=== PATIENT | male | born 1940 | race Caucasian/White ===

== ENCOUNTER → 2016-11-09 | Outpatient (CLI) | payer MEDICARE ==
--- NOTE | 2016-11-09 07:39 | CT ---
EXAMINATION TYPE: CT chest wo con DATE OF EXAM: 11/09/2016 7:27 AM COMPARISON: NONE HISTORY: Pulmonary fibrosis CT DLP: 147 mGycm Automated exposure control for dose reduction was used. FINDINGS: There is breathing motion artifact present on this study. There is very mild interlobular septal thic kening. There is mild, diffuse bronchiectasis. There is no significant axillary or hilar adenopathy. There is an 8 mm subcarinal lymph node. There is no pleural or pericardial fluid. There is an incompletely visualized 2.3 cm lesion involving the right kidney. There is diffuse hypertrophic spondylosis in the lower cervical spine dorsal spines. IMPRESSION: 1. MILD, DIFFUSE INTERSTITIAL CHANGE. 2. MILD, DIFFUSE BRONCHIECTASIS. 3. RIGHT RENAL LESION. A RENAL ULTRASOUND WOULD BE SUGGESTED. 4. EXTENSIVE DEGENERATIVE CHANGE WITHIN THE CERVICAL AND DORSAL SPINES.
== END | disposition home or self-care (01) ==
LOC: RADCTMAIN 07:03
PROVIDERS: ATTEND Internal Medicine
DX: J98.4 Other disorders of lung (principal); J47.9 Bronchiectasis, uncomplicated
CPT/HCPCS: 71250

== ENCOUNTER → 2016-12-07 | Outpatient (CLI) | payer MEDICARE ==
--- NOTE | 2016-12-07 10:58 | US ---
EXAMINATION TYPE: US kidneys/renal and bladder DATE OF EXAM: 12/07/2016 9:15 AM COMPARISON: CT in pacs CLINICAL HISTORY: Cysts of Kidney N28.1. Right kidney lesion seen on recent CT EXAM MEASUREMENTS: Right Kidney: 9.1 x 4.6 x 4.4 cm Left Kidney: 10.7 x 5.0 x 4.6 cm TECHNOLOGIST IMPRESSION: Right Kidney: 3.0 x 2.1 x 2.3cm hypoechoic area superior pole Left Kidney: wnl Bladder: not fully distended, appears wnl as seen Bilateral Jets seen: no There is no evidence for hydronephrosis at this point in time. No nephrolithiasis is seen. The uri nary bladder is anechoic. Bilateral ureteral jets are seen. Cystic focus within the right kidney shows a somewhat irregular wall. IMPRESSION: Findings do not represent a simple cyst. Consider short interval follow-up contrast enhanced CT scan of the abdomen versus follow-up ultrasound or MRI.
== END ==
LOC: RADUSWWP 08:40
PROVIDERS: ATTEND Internal Medicine Geriatric Medicine
DX: N28.1 Cyst of kidney, acquired (principal)
CPT/HCPCS: 76770

== ENCOUNTER 2018-05-11 10:57 | Emergency (ER) | payer MEDICARE ==
[2018-05-11 11:15] VITALS: RESP 18
[2018-05-11] MEDS ORDERED: DIPH,PERTUS(ACELL)TETVAC-LF 0.5 ML VIAL IM ONE (11:19)
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
--- NOTE | 2018-05-11 11:47 | XR ---
EXAMINATION TYPE: XR chest 1V portable DATE OF EXAM: 05/11/2018 HISTORY: Shortness of breath. COMPARISON: None. TECHNIQUE: Single view of the chest is submitted. FINDINGS: Demonstrated are scattered senescent parenchymal change. There is no evidence for focal infiltrate. The heart is stable. Hilar and mediastinal structures are within normal limits. Degenerative changes are seen of the dorsal spine. IMPRESSION: 1. Chronic changes without evidence for acute pulmonary disease.
--- NOTE | 2018-05-11 11:51 | XR ---
EXAMINATION TYPE: XR pelvis AP view DATE OF EXAM: 05/11/2018 CLINICAL HISTORY: TECHNIQUE: A single AP view of the pelvis is obtained. COMPARISON: None. FINDINGS: Vague lucency overlies the right femoral head. Nondisplaced fracture is difficult to exclud e. Consider CT of the right hip. The hip and sacroiliac joints appear symmetric and unremarkable. Th e overlying soft tissue appears unremarkable. IMPRESSION: Vague lucency overlies the right femoral head. Nondisplaced fracture is difficult to exc lude. Consider CT of the right hip.
[2018-05-11] MEDS ORDERED: LIDOCAINE 1% INJ 10MG/ML (20 ML MDV) SQ ONE (12:18)
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
[2018-05-11 13:42] VITALS: BP 159/81; PULSE 83; TEMP 97
== END 2018-05-11 13:35 | disposition home or self-care (01) ==
LOC: EC 10:57
DX: S01.01XA Laceration without foreign body of scalp, initial encounter (principal); G47.30 Sleep apnea, unspecified; J45.909 Unspecified asthma, uncomplicated; I10 Essential (primary) hypertension; Z23 Encounter for immunization; Z79.51 Long term (current) use of inhaled steroids; Z79.899 Other long term (current) drug therapy; Z85.46 Personal history of malignant neoplasm of prostate; V18.4XXA Pedal cycle driver injured in noncollision transport accident in traffic accident, initial encounter; Y93.55 Activity, bike riding
CPT/HCPCS: 99285; 12002; 90471; 72170; 71045; 72125; 70450; 90715; J2001

== ENCOUNTER 2018-12-20 15:08 | Inpatient (IN) | payer MEDICARE ==
[2018-12-20] MEDS ORDERED: methylPREDNISolone SOD SUCCI 125 MG/2 ML VIAL IV STA (15:41)
[2018-12-20] MEDS ORDERED: IPRATROPIUM-ALBUTEROL 3 ML NEB INHALATION STA (15:41)
[2018-12-20 16:02] LABS: Basophils # (A) 0.1 k/uL (0-0.2); Basophils % (A) 0 %; Eosinophils # (A) 0.8 k/uL (0-0.7); Eosinophils % (A) 6 %; HCT 46.1 % (39.0-53.0); HGB 14.8 gm/dL (13.0-17.5); Lymphocytes % (A) 8 %; MCH 28.2 pg (25.0-35.0); MCHC 32.2 g/dL (31.0-37.0); MCV 87.6 fL (80.0-100.0); Mean Platelet Volume 7.8; Monocytes # (A) 0.8 k/uL (0-1.0); Monocytes % (A) 6 %; Neutrophils # (A) 9.2 k/uL (1.3-7.7); Neutrophils % (A) 77 %; Platelet Count 228 k/uL (150-450); RBC 5.26 m/uL (4.30-5.90); RDW 14.2 % (11.5-15.5); WBC 11.9 k/uL (3.8-10.6)
[2018-12-20 16:11] LABS: Albumin 4.1 g/dL (3.5-5.0); Calcium 9.5 mg/dL (8.4-10.2); INR 0.9 (<1.2); Magnesium 2.2 mg/dL (1.6-2.3); Partial Thromboplastin Time 25.2 sec (22.0-30.0); Potassium 3.9 mmol/L (3.5-5.1); Prothrombin Time 10.1 sec (9.0-12.0); Total Bilirubin 0.7 mg/dL (0.2-1.3); Total Protein 7.1 g/dL (6.3-8.2)
--- NOTE | 2018-12-20 17:20 | ED ---
SOB HPI - General Chief Complaint: Shortness of Breath Stated Complaint: pneumonia Time Seen by Provider: 12/20/18 15:19 Source: family, RN/MD, RN notes reviewed Mode of arrival: wheelchair Limitations: altered mental status - History of Present Illness Initial Comments: This is a 77-year-old male history of dementia who was sent in from his doctor's office for evaluation shortness of breath and aspiration. Patient did have an episode of aspiration in October of this year per family he is not really recovered is believed he is aspirated again the meantime. He has persistent shortness of breath and evaluation diminished breath sounds with evidence of wheezing. Patient himself is a poor historian does demonstrate Parkinson's and Alzheimer's disease. No further information available at this time. MD Complaint: shortness of breath, cough - Related Data Home Medications Medication Instructions Recorded Confirmed Budesonide-Formot 160-4.5 Mcg 2 puff INHALATION RT-BID 06/28/16 12/20/18 [Symbicort 160-4.5 Mcg Inhaler] amLODIPine BESYLATE [Amlodipine 10 mg PO DAILY 06/28/16 12/20/18 Besylate] Albuterol Sulfate [Proair Hfa] 2 puff INHALATION RT-Q4H PRN 05/11/18 12/20/18 Cholecalciferol [Vitamin D3] 5,000 unit PO DAILY 05/11/18 12/20/18 Sertraline HCl [Zoloft] 50 mg PO DAILY 05/11/18 12/20/18 Albuterol Nebulized [Ventolin 2.5 mg INHALATION RT-QID PRN 12/20/18 12/20/18 Nebulized] Tolterodine Tartrate [Detrol LA] 2 mg PO DAILY 12/20/18 12/20/18 Allergies Allergy/AdvReac Type Severity Reaction Status Date / Time codeine AdvReac LETHARGIC Verified 12/20/18 15:51 Review of Systems ROS Statement: Those systems with pertinent positive or pertinent negative responses have been documented in the HPI. ROS Other: All systems not noted in ROS Statement are negative. Limitations: ROS unobtainable due to patients medical condition Past Medical History Past Medical History: Asthma, Cancer, Dementia, Hypertension, Liver Disease, Sleep Apnea/CPAP/BIPAP Additional Past Medical History / Comment(s): HX OF NASAL POLYPS, HX OF PROSTATE CA, METAL CLIPS IN [place] EYES, CANNOT HAVE MRI, DOES NOT USE CPAP History of Any Multi-Drug Resistant Organisms: None Reported Past Surgical History: Prostate Surgery Additional Past Surgical History / Comment(s): TAWNYA EYES SX FOR DETACHED RETINA WITH METAL CLIPS Past Anesthesia/Blood Transfusion Reactions: Previous Problems w/ Anesthesia Additional Past Anesthesia/Blood Transfusion Reaction / Comment(s): SPOUSE STATES "HAS TROUBLE WAKING UP" Past Psychological History: No Psychological Hx Reported Smoking Status: Never smoker Past Alcohol Use History: None Reported Past Drug Use History: None Reported - Past Family History Sister(s) Family Medical History: Cancer General Exam - General Exam Comments Initial Comments: This is a well-developed sec appearing male who is awake alert but confused. Limitations: altered mental status General appearance: alert, in no apparent distress Head exam: Present: atraumatic, normocephalic, normal inspection Eye exam: Present: normal appearance, PERRL, EOMI. Absent: scleral icterus, conjunctival injection, periorbital swelling ENT exam: Present: mucous membranes dry Neck exam: Present: normal inspection. Absent: tenderness, meningismus, lymphadenopathy Respiratory exam: Present: wheezes, rhonchi, decreased breath sounds Cardiovascular Exam: Present: normal rhythm, tachycardia GI/Abdominal exam: Present: soft, normal bowel sounds. Absent: distended, tenderness, guarding, rebound, rigid Extremities exam: Present: normal inspection, full ROM, normal capillary refill. Absent: tenderness, pedal edema, joint swelling, calf tenderness Back exam: Present: normal inspection Neurological exam: Present: alert, altered, CN II-XII intact Psychiatric exam: Present: normal affect, normal mood Skin exam: Present: warm, dry, intact, normal color. Absent: rash Course Vital Signs 12/20/18 12/20/18 12/20/18 15:14 15:54 16:00 Temperature 98.3 F Pulse Rate 105 H 102 H 96 Respiratory 20 Rate Blood Pressure 151/92 O2 Sat by Pulse 96 100 Oximetry 12/20/18 16:30 Temperature Pulse Rate 94 Respiratory 19 Rate Blood Pressure 150/92 O2 Sat by Pulse 98 Oximetry Medical Decision Making - Medical Decision Making Did discuss findings with the patient family and Dr. Bridges as well as previously with Dr. Barboza patient will be admitted with pneumonia likely aspiration pneumonia also bronchospasm. Patient will be seen in consultation by pulmonary medicine. - Lab Data Result diagrams: 12/20/18 15:52 12/20/18 15:52 Lab Results 12/20/18 12/20/18 12/20/18 Range/Units 15:52 15:52 15:52 WBC 11.9 H (3.8-10.6) k/uL RBC 5.26 (4.30-5.90) m/uL Hgb 14.8 (13.0-17.5) gm/dL Hct 46.1 (39.0-53.0) % MCV 87.6 (80.0-100.0) fL MCH 28.2 (25.0-35.0) pg MCHC 32.2 (31.0-37.0) g/dL RDW 14.2 (11.5-15.5) % Plt Count 228 (150-450) k/uL Neutrophils % 77 % Lymphocytes % 8 % Monocytes % 6 % Eosinophils % 6 % Basophils % 0 % Neutrophils # 9.2 H (1.3-7.7) k/uL Lymphocytes # 1.0 (1.0-4.8) k/uL Monocytes # 0.8 (0-1.0) k/uL Eosinophils # 0.8 H (0-0.7) k/uL Basophils # 0.1 (0-0.2) k/uL PT (9.0-12.0) sec INR (<1.2) APTT (22.0-30.0) sec Sodium 143 (137-145) mmol/L Potassium 3.9 (3.5-5.1) mmol/L Chloride 106 (98-107) mmol/L Carbon Dioxide 28 (22-30) mmol/L Anion Gap 9 mmol/L BUN 33 H (9-20) mg/dL Creatinine 1.26 H (0.66-1.25) mg/dL Est GFR (CKD-EPI)AfAm 62 (>60 ml/min/1.73 sqM) Est GFR (CKD-EPI)NonAf 54 (>60 ml/min/1.73 sqM) Glucose 109 H (74-99) mg/dL Calcium 9.5 (8.4-10.2) mg/dL Magnesium 2.2 (1.6-2.3) mg/dL Total Bilirubin 0.7 (0.2-1.3) mg/dL AST 33 (17-59) U/L ALT 29 (21-72) U/L Alkaline Phosphatase 96 (38-126) U/L Creatine Kinase 190 H (55-170) U/L Troponin I (0.000-0.034) ng/mL NT-Pro-B Natriuret Pep 827 pg/mL Total Protein 7.1 (6.3-8.2) g/dL Albumin 4.1 (3.5-5.0) g/dL 12/20/18 12/20/18 Range/Units 15:52 15:52 WBC (3.8-10.6) k/uL RBC (4.30-5.90) m/uL Hgb (13.0-17.5) gm/dL Hct (39.0-53.0) % MCV (80.0-100.0) fL MCH (25.0-35.0) pg MCHC (31.0-37.0) g/dL RDW (11.5-15.5) % Plt Count (150-450) k/uL Neutrophils % % Lymphocytes % % Monocytes % % Eosinophils % % Basophils % % Neutrophils # (1.3-7.7) k/uL Lymphocytes # (1.0-4.8) k/uL Monocytes # (0-1.0) k/uL Eosinophils # (0-0.7) k/uL Basophils # (0-0.2) k/uL PT 10.1 (9.0-12.0) sec INR 0.9 (<1.2) APTT 25.2 (22.0-30.0) sec Sodium (137-145) mmol/L Potassium (3.5-5.1) mmol/L Chloride (98-107) mmol/L Carbon Dioxide (22-30) mmol/L Anion Gap mmol/L BUN (9-20) mg/dL Creatinine (0.66-1.25) mg/dL Est GFR (CKD-EPI)AfAm (>60 ml/min/1.73 sqM) Est GFR (CKD-EPI)NonAf (>60 ml/min/1.73 sqM) Glucose (74-99) mg/dL Calcium (8.4-10.2) mg/dL Magnesium (1.6-2.3) mg/dL Total Bilirubin (0.2-1.3) mg/dL AST (17-59) U/L ALT (21-72) U/L Alkaline Phosphatase (38-126) U/L Creatine Kinase (55-170) U/L Troponin I 0.022 (0.000-0.034) ng/mL NT-Pro-B Natriuret Pep pg/mL Total Protein (6.3-8.2) g/dL Albumin (3.5-5.0) g/dL - EKG Data -: EKG Interpreted by Me (Sinus rhythm rate 98. Interval 158 QRS duration 104 QT since QTC 380/490 5) - Radiology Data Radiology results: report reviewed (I did review the imaging and report evidence of bronchopulmonary pneumonia on the lateral x-ray the mediastinal area.), image reviewed Disposition Clinical Impression: Aspiration pneumonia, Acute exacerbation of chronic obstructive airways disease, Acute bronchospasm Disposition: ADMITTED IP TO THIS HOSP Condition: Fair Referrals: Dilshad Barboza MD [Primary Care Provider] - 1-2 days
--- NOTE | 2018-12-20 17:32 | XR ---
EXAMINATION: XR chest 2V DATE AND TIME: 12/20/2018 4:51 PM CLINICAL INDICATION: PHH; difficulty breathing TECHNIQUE: Departmental protocol COMPARISON: 05/11/2018 FINDINGS: EKG leads noted. The lungs again demonstrate a coarse interstitial pattern consistent with chronic interstitial lung c hange. The lateral view shows 2 3 cm zones of consolidative opacity, superimposed over the middle med iastinum but suspicious for early developing bronchopneumonia. The pleural spaces are negative. The cardiac silhouette is not enlarged. The remainder of the mediastinal silhouette is unremarkable. The skeletal structures and soft tissues are negative for acute findings. IMPRESSION: Findings suspicious for early developing bronchopneumonia on the lateral radiograph; 6 week follow-up PA and lateral chest radiographs are advised in order to prove resolution.
[2018-12-20] MEDS ORDERED: PIPERACILLIN-TAZOBACTAM 3.375 GM in SODIUM CHLORIDE 0.9% 100 ML IVPB STA (17:50)
[2018-12-20] MEDS ORDERED: PNEUMONIA PROTOCOL UTILIZED 1 EACH MISC PO PRN (17:56)
[2018-12-20] MEDS ORDERED: LEVOFLOXACIN 750MG-D5W PMX 750 MG in DEXTROSE/WATER 1 150ML.BAG IVPB STA (17:56)
[2018-12-20] MEDS ORDERED: methylPREDNISolone SOD SUCCI 125 MG/2 ML VIAL IV SCH (18:00)
[2018-12-20] MEDS: SODIUM CHLORIDE 0.9% 1,000 ML IV SCH (18:16)
[2018-12-20] MEDS: IPRATROPIUM-ALBUTEROL 3 ML NEB INHALATION SCH ×2 (19:23→23:15)
[2018-12-20] MEDS: SYMBICORT 160-4.5 MCG INHALER INHALATION SCH (19:24)
[2018-12-20] MEDS ORDERED: ALPRAZolam 0.25 MG TAB PO STA (22:29)
[2018-12-21] MEDS: HEPARIN SODIUM,PORCINE 5,000 UNIT/ML 1 ML VIAL SQ SCH ×4 (00:48→23:28)
[2018-12-21] MEDS: methylPREDNISolone SOD SUCCI 125 MG/2 ML VIAL IV SCH ×5 (00:51→23:28)
[2018-12-21] MEDS: PIPERACILLIN-TAZOBACTAM 3.375 GM in SODIUM CHLORIDE 0.9% 100 ML IVPB SCH ×4 (00:51→23:29)
[2018-12-21] MEDS ORDERED: LEVOFLOXACIN 750MG-D5W PMX 750 MG in DEXTROSE/WATER 1 150ML.BAG IVPB ONE (01:00)
[2018-12-21] MEDS: IPRATROPIUM-ALBUTEROL 3 ML NEB INHALATION SCH ×5 (03:41→20:00)
[2018-12-21] MEDS: SODIUM CHLORIDE 0.9% 1,000 ML IV SCH ×3 (05:40→23:29)
[2018-12-21] MEDS: SYMBICORT 160-4.5 MCG INHALER INHALATION SCH ×2 (07:05→20:03)
[2018-12-21] MEDS: OXYBUTYNIN XL 5 MG TAB.ER.24 PO SCH (09:14)
[2018-12-21] MEDS: amLODIPine 10 MG TAB PO SCH (09:14)
[2018-12-21] MEDS: PANTOPRAZOLE 40 MG TABLET PO SCH (09:14)
[2018-12-21] MEDS: SERTRALINE 50 MG TAB PO SCH (09:14)
[2018-12-21] MEDS: CHOLECALCIFEROL 1,000 UNIT TAB PO SCH (09:15)
--- NOTE | 2018-12-21 11:40 | P.CNPUL ---
History of Present Illness Consult date: 12/21/18 Requesting physician: Kendall Salvador Reason for consult: dyspnea, cough Chief complaint: Shortness of breath, wheezing History of present illness: This is a 78-year-old white male patient with history of advanced dementia, history of chronic bronchial asthma, hypertension, sleep apnea does not use CPAP, never smoker, prostate cancer is admitted to the hospital on 12/20/2018 with complaint some shortness of breath, suspected episode of aspiration, some cough, wheezing. Apparently patient has been having recurrent episodes of aspiration for last 6 months. His is at the bedside, and provided much of the history, patient has been treated in outpatient setting with antibiotics, steroids and breathing treatments. He has been having trouble swallowing with both liquids and solids. His states he eats very fast despite the instructions to slow down. Chest x-ray was completed, and showed coarse interstitial pattern, suspicious early developing bronchopneumonia in the right lower lobe. Patient has been started on empiric antibiotics, currently on Levaquin and Zosyn, Symbicort, nebulized bronchodilators, and IV Solu-Medrol. Review of Systems All systems: negative Constitutional: Denies chills, Denies fever Eyes: denies blurred vision, denies pain Ears, nose, mouth and throat: Denies headache, Denies sore throat Cardiovascular: Denies chest pain, Denies shortness of breath Respiratory: Reports congestion, Reports dyspnea, Reports respiratory infections, Reports wheezing, Denies cough Gastrointestinal: Denies abdominal pain, Denies diarrhea, Denies nausea, Denies vomiting Musculoskeletal: Denies myalgias Integumentary: Denies pruritus, Denies rash Neurological: Denies numbness, Denies weakness Psychiatric: Denies anxiety, Denies depression Endocrine: Denies fatigue, Denies weight change Past Medical History Past Medical History: Asthma, Cancer, Dementia, Hypertension, Liver Disease, Sleep Apnea/CPAP/BIPAP Additional Past Medical History / Comment(s): HX OF NASAL POLYPS, HX OF PROSTATE CA, METAL CLIPS IN [place]NYA EYES, CANNOT HAVE MRI, DOES NOT USE CPAP History of Any Multi-Drug Resistant Organisms: None Reported Past Surgical History: Prostate Surgery Additional Past Surgical History / Comment(s): TAWNYA EYES SX FOR DETACHED RETINA WITH METAL CLIPS Past Anesthesia/Blood Transfusion Reactions: Previous Problems w/ Anesthesia Additional Past Anesthesia/Blood Transfusion Reaction / Comment(s): SPOUSE STATES "HAS TROUBLE WAKING UP" Past Psychological History: No Psychological Hx Reported Smoking Status: Never smoker Past Alcohol Use History: None Reported Past Drug Use History: None Reported - Past Family History Sister(s) Family Medical History: Cancer Medications and Allergies Home Medications Medication Instructions Recorded Confirmed Type Budesonide-Formot 160-4.5 Mcg 2 puff INHALATION RT-BID 06/28/16 12/20/18 History [Symbicort 160-4.5 Mcg Inhaler] amLODIPine BESYLATE [Amlodipine 10 mg PO DAILY 06/28/16 12/20/18 History Besylate] Albuterol Sulfate [Proair Hfa] 2 puff INHALATION RT-Q4H PRN 05/11/18 12/20/18 History Cholecalciferol [Vitamin D3] 5,000 unit PO DAILY 05/11/18 12/20/18 History Sertraline HCl [Zoloft] 50 mg PO DAILY 05/11/18 12/20/18 History Albuterol Nebulized [Ventolin 2.5 mg INHALATION RT-QID PRN 12/20/18 12/20/18 History Nebulized] Tolterodine Tartrate [Detrol LA] 2 mg PO DAILY 12/20/18 12/20/18 History Allergies Allergy/AdvReac Type Severity Reaction Status Date / Time codeine AdvReac LETHARGIC Verified 12/20/18 15:51 Physical Exam Vitals: Vital Signs Temp Pulse Pulse Resp BP BP Pulse Ox 12/21/18 11:25 80 12/21/18 11:13 84 12/21/18 07:13 90 12/21/18 07:06 88 12/21/18 07:00 97.9 F 102 H 18 145/89 95 12/21/18 03:52 90 12/21/18 03:41 90 12/20/18 23:26 92 12/20/18 23:16 92 12/20/18 21:18 98.7 F 107 H 18 152/89 94 L 12/20/18 19:35 97 12/20/18 19:24 96 99 12/20/18 18:30 158/98 12/20/18 18:00 101 H 158/110 12/20/18 17:30 145/87 12/20/18 17:00 101 H 143/97 98 12/20/18 16:30 94 19 150/92 98 12/20/18 16:00 96 100 12/20/18 15:54 102 H 12/20/18 15:14 98.3 F 105 H 20 151/92 96 Intake and Output 12/20/18 12/21/18 12/21/18 22:59 06:59 14:59 Intake Total 600 Balance 600 Intake: Other 600 Other: # Voids 1 Weight 72.575 kg GENERAL EXAM: Alert, pleasantly confused, 78-year-old white female, comfortable in no apparent distress. HEAD: Normocephalic/atraumatic. EYES: Normal reaction of pupils, equal size. Conjunctiva pink, sclera white. NOSE: Clear with pink turbinates. THROAT: No erythema or exudates. NECK: No masses, no JVD, no thyroid enlargement, no adenopathy. CHEST: No chest wall deformity. Symmetrical expansion. LUNGS: Equal air entry with diffuse rhonchi and wheezes CVS: Regular rate and rhythm, normal S1 and S2, no gallops, no murmurs, no rubs ABDOMEN: Soft, nontender. No hepatosplenomegaly, normal bowel sounds, no guarding or rigidity. EXTREMITIES: No clubbing, no edema, no cyanosis, 2+ pulses and upper and lower extremities. MUSCULOSKELETAL: Muscle strength and tone normal. SPINE: No scoliosis or deformity SKIN: No rashes CENTRAL NERVOUS SYSTEM: Alert and oriented -2. No focal deficits, tone is normal in all 4 extremities. PSYCHIATRIC: Alert and oriented -2. Appropriate affect. Intact judgment and insight. Results - Laboratory Findings CBC and BMP: 12/20/18 15:52 12/20/18 15:52 PT/INR, D-dimer PT 10.1 sec (9.0-12.0) 12/20/18 15:52 INR 0.9 (<1.2) 12/20/18 15:52 Abnormal lab findings: Abnormal Labs 12/20/18 12/20/18 15:52 15:52 WBC 11.9 H Neutrophils # 9.2 H Eosinophils # 0.8 H BUN 33 H Creatinine 1.26 H Glucose 109 H Creatine Kinase 190 H - Diagnostic Findings Chest x-ray: report reviewed, image reviewed Assessment and Plan Plan: Assessment: #1. Acute aspiration pneumonia, and the chest x-ray showed interstitial pat tern, and right lower lobe developing infiltrate suspicious for pneumonia #2. Chronic aspiration related to dementia #3. Recurrent aspiration pneumonias, difficult swallowing with both liquids and solids for last 6 months #4. History of chronic bronchial asthma with acute exacerbation related to aspiration #5. Hypertension #6. Sleep apnea not on CPAP therapy #7. Prostate cancer with resection #8. Lifetime nonsmoker #9. Dementia Plan: Continue current antibiotic coverage, IV steroids, nebulized bronchodilators. Recommend status nothing by mouth, patient is having recurrent aspiration likely related to underlying dementia. Will obtain speech therapy evaluation, modified barium swallow. Recommend conservative medical treatment, patient's CODE STATUS is DO NOT RESUSCITATE. Continue with supportive care. All medications, chest x-rays and labs have been reviewed, pro-calcitonin level was low, suggesting absence of infection, and this could be gastric acid aspiration, or Radha syndrome. He is on appropriate therapies, will follow on as-needed basis. Thank you for this consultation I performed a history & physical examination of the patient and discussed their management with my nurse practitioner, Rufina Mortensen. I reviewed the nurse practitioner's note and agree with the documented findings and plan of care. Lung sounds are positive for diffuse wheezes throughout the lung parker. The findings and the impression was discussed with the patient. I attest to the documentation by the nurse practitioner. Time with Patient: Greater than 30
--- NOTE | 2018-12-21 13:24 | P.HPIM ---
History of Present Illness H&P Date: 12/20/18 Chief Complaint: Aspiration pneumonia with asthma exacerbation. This is a 69-year-old male one of Dr. Barboza with a previous medical history significant for hypertension and hypertensive cardio vascular disease with left ventricular hypertrophy, history of advanced dementia, as well as Parkinson disease, history of overactive bladder, prostate cancer status post r adical prostatectomy, history of chronic and recurrent aspiration of the last 6 months with deterioration of his mental status and physical status, he was brought into the office due to increased shortness with increased confusion, and he was referred to the ER at [facility] for evaluation of aspiration pneumonia, he had a chest x-ray that showed left lower lobe infiltrate suggestive of aspiration pneumonia, pro-calcitonin level is low indicating Radha pneumonia or acid reflux pneumonia. Patient was started on IV antibiotic as well as IV Solu-Medrol he was placed on nebulized treatment as well he would be seen in consultation by pulmonary medicine for further evaluation. Patient's did not want him to go for any invasive procedure or any diagnostic testing including swallow evaluation at this time, we will continue to monitor the patient very closely and hopefully transfer the patient to monitor for palliative care. Review of Systems Constitutional: Reports fatigue, Reports malaise, Reports weakness, Reports weight loss, Denies anorexia, Denies chronic headaches Eyes: bilateral blurred vision, bilateral decreased vision, denies bulging eye Ears: bilateral: decreased hearing Ears, nose, mouth and throat: Reports dysphagia, Denies neck lump, Denies swelling in throat, Denies sore throat Cardiovascular: Reports decreased exercise tolerance, Reports dyspnea on exertion, Reports lightheadedness, Reports shortness of breath, Denies chest pain, Denies rapid heart beat, Denies syncope Respiratory: Reports congestion, Reports cough, Reports cough with sputum, Reports dyspnea, Reports sleep apnea, Reports snoring, Reports wheezing, Denies home oxygen Gastrointestinal: Denies abdominal pain, Denies bloating, Denies BRBPR, Denies heartburn, Denies loss of appetite, Denies melena, Denies nausea, Denies vomiting Genitourinary: Denies dysuria Musculoskeletal: Reports as per HPI, Reports frequent falls, Reports gait dysfunction, Reports morning stiffness Musculoskeletal: absent: ankle pain, ankle stiffness, ankle swelling, elbow pain, elbow stiffness, elbow swelling, foot pain, foot stiffness, foot swelling, hand pain, hand stiffness, hand swelling, hip pain, hip stiffness, hip swelling, knee pain, knee stiffness, knee swelling, shoulder pain, shoulder stiffness, shoulder swelling, wrist pain, wrist stiffness, wrist swelling Integumentary: Denies pruritus, Denies rash Neurological: Reports balance difficulties, Reports change in speech, Reports confusion, Reports gait dysfunction, Reports lack of coordination, Reports memory loss, Reports spasticity, Reports tremors, Reports vertigo, Reports weakness, Reports visual changes Psychiatric: Reports anxiety, Reports confusion, Reports insomnia, Reports irritability, Denies depression, Denies sadness/tearfulness, Denies sleep disturbances, Denies suicidal ideation Endocrine: Denies fatigue, Denies weight change Past Medical History Past Medical History: Asthma, Cancer, Dementia, Hypertension, Liver Disease, Sleep Apnea/CPAP/BIPAP Additional Past Medical History / Comment(s): HX OF NASAL POLYPS, HX OF PROSTATE CA, METAL CLIPS IN TAWNYA EYES, CANNOT HAVE MRI, DOES NOT USE CPAP History of Any Multi-Drug Resistant Organisms: None Reported Past Surgical History: Prostate Surgery Additional Past Surgical History / Comment(s): TAWNYA EYES SX FOR DETACHED RETINA WITH METAL CLIPS, sinus surgery, radical prostatectomy 2003, tonsillectomy and adenoidectomy, bilateral retinal detachment 1992 and 1995. Past Anesthesia/Blood Transfusion Reactions: Previous Problems w/ Anesthesia Additional Past Anesthesia/Blood Transfusion Reaction / Comment(s): SPOUSE STATES "HAS TROUBLE WAKING UP" Past Psychological History: No Psychological Hx Reported Smoking Status: Never smoker Past Alcohol Use History: None Reported Past Drug Use History: None Reported - Past Family History Sister(s) Family Medical History: Cancer (Patient had one sister who at age of 65 from cancer of unknown origin.) Brother(s) Family Medical History: No Reported History (Patient had 2 brothers one of them was stillborn) Father Family Medical History: Renal Disease (Father at age of 83 from renal disease.) Mother Family Medical History: Congestive Heart Failure (CHF), COPD (Mother at age of 74 from congestive heart failure and COPD.) Medications and Allergies Home Medications Medication Instructions Recorded Confirmed Type Budesonide-Formot 160-4.5 Mcg 2 puff INHALATION RT-BID 06/28/16 12/20/18 History [Symbicort 160-4.5 Mcg Inhaler] amLODIPine BESYLATE [Amlodipine 10 mg PO DAILY 06/28/16 12/20/18 History Besylate] Albuterol Sulfate [Proair Hfa] 2 puff INHALATION RT-Q4H PRN 05/11/18 12/20/18 History Cholecalciferol [Vitamin D3] 5,000 unit PO DAILY 05/11/18 12/20/18 History Sertraline HCl [Zoloft] 50 mg PO DAILY 05/11/18 12/20/18 History Albuterol Nebulized [Ventolin 2.5 mg INHALATION RT-QID PRN 12/20/18 12/20/18 History Nebulized] Tolterodine Tartrate [Detrol LA] 2 mg PO DAILY 12/20/18 12/20/18 History Allergies Allergy/AdvReac Type Severity Reaction Status Date / Time codeine AdvReac LETHARGIC Verified 12/20/18 15:51 Physical Exam Vitals: Vital Signs Temp Pulse Resp BP Pulse Ox 12/20/18 18:30 158/98 12/20/18 18:00 101 H 158/110 12/20/18 17:30 145/87 12/20/18 17:00 101 H 143/97 98 12/20/18 16:30 94 19 150/92 98 12/20/18 16:00 96 100 12/20/18 15:54 102 H 12/20/18 15:14 98.3 F 105 H 20 151/92 96 Intake and Output 12/20/18 12/20/18 12/20/18 06:59 14:59 22:59 Other: Weight 72.575 kg - Constitutional General appearance: disheveled, mild distress, thin - Neck Neck: no lymphadenopathy, normal ROM, no rigidity, no stridor, no thyromegaly Carotids: bilateral: upstroke normal Thyroid: bilateral: normal size - Respiratory Respiratory: bilateral: diminished, rales, rhonchi, wheezing, prolonged expiration, negative: dullness - Cardiovascular Rhythm: regular Heart sounds: normal: S1, S2 Abnormal Heart Sounds: systolic murmur, no S3 Gallop, no S4 Gallop - Gastrointestinal General gastrointestinal: normal bowel sounds, soft, no splenomegaly, no tenderness, no umbilical hernia, no ventral hernia - Integumentary Integumentary: normal, normal turgor - Musculoskeletal Musculoskeletal: generalized weakness, strength equal bilaterally - Psychiatric Psychiatric: no A&O x's 3, no appropriate affect, no intact judgment & insight Results CBC & Chem 7: 12/20/18 15:52 12/20/18 15:52 Labs: Abnormal Lab Results - Last 24 Hours (Table) 12/20/18 12/20/18 Range/Units 15:52 15:52 WBC 11.9 H (3.8-10.6) k/uL Neutrophils # 9.2 H (1.3-7.7) k/uL Eosinophils # 0.8 H (0-0.7) k/uL BUN 33 H (9-20) mg/dL Creatinine 1.26 H (0.66-1.25) mg/dL Glucose 109 H (74-99) mg/dL Creatine Kinase 190 H (55-170) U/L Thrombosis Risk Factor Assmnt - DVT/VTE Prophylaxis DVT/VTE Prophylaxis: Pharmacologic Prophylaxis ordered, Mechanical Prophylaxis o rdered Assessment and Plan Assessment: Assessment and plan: 1. Acute aspiration pneumonia with asthma exacerbation. Continue DuoNeb 3 mg nebulization 4 times every day, continue oxygen support, continue patient on Levaquin 750 mg orally every 48 hours, continue Zosyn 3.375 g IV piggyback every 6 hours, pulmonary consultation Dr. Simmons, we will continue patient on Symbicort 160/4.5 g 2 puff inhalation twice every day, continue patient also on Solu-Med rol 60 mg IV push every 6 hours. 2. Asthma exacerbation. Continue treatment as in paragraph #1. 3. Chronic aspiration pneumonia. Continue treatment as paragraph #1 this time Radha pneumonia. 4. Hypertension and hypertensive cardio vascular disease. Continue amlodipine 5 mg orally once every day. 5. Hyperlipidemia. Patient is not taking his statin. 6. Overactive bladder. Continue oxybutynin 5 mg orally once every day. 7. Parkinson disease. Patient is not on any medication at this time. 8. Advanced dementia. Family requested no medication as the risks outweigh benefits. 9. History of prostate cancer status post radical prostatectomy. 10. GERD. Continue PPI. 11. DVT prophylaxis. Continue patient on heparin 5000 units subcutaneously every 8 hours. 12. GI prophylaxis. Continue PPI. 13. Admit to inpatient. Estimate a length of stay 2 midnights. 14. Patient is DO NOT RESUSCITATE.
--- NOTE | 2018-12-21 14:38 | P.PN ---
Subjective Progress Note Date: 12/21/18 This is a 69-year-old male one of Dr. Barboza with a previous medical history significant for hypertension and hypertensive cardio vascular disease with left ventricular hypertrophy, history of advanced dementia, as well as Parkinson disease, history of overactive bladder, prostate cancer status post radical prostatectomy, history of chronic and recurrent aspiration of the last 6 months with deterioration of his mental status and physical status, he was brought into the office due to increased shortness with increased confusion, and he was referred to the ER at [facility] for evaluation of aspiration pneumonia, he had a chest x-ray that showed left lower lobe infiltrate suggestive of aspiration pneumonia, pro-calcitonin level is low indicating Radha pneumonia or acid reflux pneumonia. Patient was started on IV antibiotic as well as IV Solu-Medrol he was placed on nebulized treatment as well he would be seen in consultation by pulmonary medicine for further evaluation. Patient's did not want him to go for any invasive procedure or any diagnostic testing including swallow evaluation at this time, we will continue to monitor the patient very closely and hopefully transfer the patient to monitor for palliative care. 5: patient has been afebrile, heart rate in the 80s, blood pressure 125/71 and pulse ox 95% on 2 L. pro-calcitonin 0.07. Patient states that his breathing is better from yesterday. He states he slept well. He did have some anxiety and confusion during the night and Xanax was given. Patient has been seen by Dr. Simmons and he recommended speech eval, modified barium and possible PEG tube but patient has been very clear in the past that he does not wish to pursue this. Those orders will be discontinued for now. Speech therapy will continue to recommend safe diet. Discharge plan is go to [facility] and we will ask for palliative evaluation as well. Review of Systems Constitutional: Reports fatigue, Reports malaise, Reports weakness, Reports weight loss, Denies anorexia, Denies chronic headaches Eyes: bilateral blurred vision, bilateral decreased vision, denies bulging eye Ears: bilateral: decreased hearing Ears, nose, mouth and throat: Reports dysphagia, Denies neck lump, Denies swelling in throat, Denies sore throat Cardiovascular: Reports decreased exercise tolerance, Reports dyspnea on exertion, Reports lightheadedness, Reports shortness of breath, Denies chest pain, Denies rapid heart beat, Denies syncope Respiratory: Reports congestion, Reports cough, Reports cough with sputum, Reports dyspnea, Reports sleep apnea, Reports snoring, Reports wheezing, Denies home oxygen Gastrointestinal: Denies abdominal pain, Denies bloating, Denies BRBPR, Denies heartburn, Denies loss of appetite, Denies melena, Denies nausea, Denies vo miting Genitourinary: Denies dysuria Musculoskeletal: Reports as per HPI, Reports frequent falls, Reports gait dysfunction, Reports morning stiffness Integumentary: Denies pruritus, Denies rash Neurological: Reports balance difficulties, Reports change in speech, Reports confusion, Reports gait dysfunction, Reports lack of coordination, Reports memory loss, Reports spasticity, Reports tremors, Reports vertigo, Reports weakness, Reports visual changes Psychiatric: Reports anxiety, Reports confusion, Reports insomnia, Reports irritability, Denies depression, Denies sadness/tearfulness, Denies sleep disturbances, Denies suicidal ideation Endocrine: Denies fatigue, Denies weight change Objective - Vital Signs Vital signs: Vital Signs Temp 97.9 F 12/21/18 07:00 Pulse 84 12/21/18 11:13 Resp 18 12/21/18 07:00 BP 145/89 12/21/18 07:00 Pulse Ox 95 12/21/18 07:00 Intake & Output 12/20/18 12/21/18 12/21/18 18:59 06:59 18:59 Intake Total 600 Balance 600 Weight 72.575 kg Intake: Other 600 Other: # Voids 1 - Exam General appearance: disheveled, mild distress, thin - Neck Neck: no lymphadenopathy, normal ROM, no rigidity, no stridor, no thyromegaly Carotids: bilateral: upstroke normal Thyroid: bilateral: normal size - Respiratory Respiratory: bilateral: diminished, rales, rhonchi, wheezing, prolonged expiration, negative: dullness - Cardiovascular Rhythm: regular Heart sounds: normal: S1, S2 Abnormal Heart Sounds: systolic murmur, no S3 Gallop, no S4 Gallop - Gastrointestinal General gastrointestinal: normal bowel sounds, soft, no splenomegaly, no tenderness, no umbilical hernia, no ventral hernia - Integumentary Integumentary: normal, normal turgor - Musculoskeletal Musculoskeletal: generalized weakness, strength equal bilaterally - Psychiatric Psychiatric: no A&O x's 3, no appropriate affect, no intact judgment & insight - Labs CBC & Chem 7: 04/04/19 15:52 12/20/18 15:52 Labs: Abnormal Lab Results - Last 24 Hours (Table) 12/20/18 12/20/18 Range/Units 15:52 15:52 WBC 11.9 H (3.8-10.6) k/uL Neutrophils # 9.2 H (1.3-7.7) k/uL Eosinophils # 0.8 H (0-0.7) k/uL BUN 33 H (9-20) mg/dL Creatinine 1.26 H (0.66-1.25) mg/dL Glucose 109 H (74-99) mg/dL Creatine Kinase 190 H (55-170) U/L Assessment and Plan Plan: 1. Acute aspiration pneumonia with asthma exacerbation. Continue DuoNeb 3 mg nebulization 4 times every day, oxygen support, Levaquin 750 mg orally every 48 hours, continue Zosyn 3.375 g IV piggyback every 6 hours, Symbicort twice daily, Solu-Medrol at 60 mg IV every [address] Troy manuel. 2. Asthma exacerbation, moderate persistent. Continue treatment as in par agraph #1. 3. Chronic aspiration pneumonia. Continue treatment as paragraph #1 this time Radha pneumonia.no plan for PEG tube. 4. Hypertension and hypertensive cardio vascular disease. Continue amlodipine 5 mg orally once every day. 5. Hyperlipidemia. Patient is not taking his statin. 6. Overactive bladder. Continue oxybutynin 5 mg orally once every day. 7. Parkinson disease. Patient is not on any medication at this time. 8. Advanced dementia. Family requested no medication as the risks outweigh benefits. 9. History of prostate cancer status post radical prostatectomy. 10. GERD. Continue PPI. 11. DVT prophylaxis. Continue patient on heparin 5000 units subcutaneously every 8 hours. 12. GI prophylaxis. Continue PPI. 13. Patient is DO NOT RESUSCITATE. Discharge plan: [facility] with palliative caremost likely on Monday Impression and plan of care have been directed as dictated by the signing physician. Brenda Hill nurse practitioner acting as scribe for signing physician.
--- NOTE | 2018-12-21 14:40 | XR ---
EXAMINATION TYPE: XR chest 2V DATE OF EXAM: 12/21/2018 COMPARISON: Prior chest x-ray 05/11/2018, 12/20/2018 HISTORY: Pneumonia TECHNIQUE: Frontal and lateral views of the chest are obtained. FINDINGS: There is no focal air space opacity, pleural effusion, or pneumothorax seen. The cardiac silhouette size is within normal limits. The osseous structures are intact. Prominent anterior oste ophytes are noted in the thoracic spine. IMPRESSION: No acute cardiopulmonary process.
[2018-12-21] MEDS: LEVOFLOXACIN 750 MG TAB PO SCH (16:00)
[2018-12-21] MEDS: ALPRAZolam 0.25 MG TAB PO PRN (20:43)
[2018-12-21] MEDS: ACETAMINOPHEN TAB 325 MG TAB PO PRN (20:43)
[2018-12-21 23:42] LABS: Appearance,Urine Clear (Clear); Bilirubin,Urine Negative (Negative); Blood,Urine Negative (Negative); Color,Urine Yellow; Glucose,Urine (UA) Negative (Negative); Ketones,Urine 1+ (Negative); Leukocyte Esterase,Urine Negative (Negative); Nitrite,Urine Negative (Negative); PH, Urine 5.5 (5.0-8.0); Protein,Urine Trace (Negative); Specific Gravity,Urine 1.027 (1.001-1.035); Urobilinogen,Urine <2.0 mg/dL (<2.0)
[2018-12-22] MEDS: methylPREDNISolone SOD SUCCI 125 MG/2 ML VIAL IV SCH ×3 (05:15→17:15)
[2018-12-22] MEDS: SYMBICORT 160-4.5 MCG INHALER INHALATION SCH ×2 (07:21→21:07)
[2018-12-22] MEDS: IPRATROPIUM-ALBUTEROL 3 ML NEB INHALATION SCH ×4 (07:22→21:07)
[2018-12-22] MEDS: HEPARIN SODIUM,PORCINE 5,000 UNIT/ML 1 ML VIAL SQ SCH ×3 (07:38→23:30)
[2018-12-22] MEDS: amLODIPine 10 MG TAB PO SCH (07:38)
[2018-12-22] MEDS: PANTOPRAZOLE 40 MG TABLET PO SCH (07:38)
[2018-12-22] MEDS: OXYBUTYNIN XL 5 MG TAB.ER.24 PO SCH (07:38)
[2018-12-22] MEDS: CHOLECALCIFEROL 1,000 UNIT TAB PO SCH (07:38)
[2018-12-22] MEDS: PIPERACILLIN-TAZOBACTAM 3.375 GM in SODIUM CHLORIDE 0.9% 100 ML IVPB SCH ×3 (07:38→23:31)
[2018-12-22] MEDS: SERTRALINE 50 MG TAB PO SCH (07:38)
[2018-12-22] MEDS: ALPRAZolam 0.25 MG TAB PO PRN (07:39)
[2018-12-22] MEDS: SODIUM CHLORIDE 0.9% 1,000 ML IV SCH ×2 (11:45→19:18)
[2018-12-22 11:59] LABS: Basophils % (A) 0 %; Eosinophils # (A) 0.1 k/uL (0-0.7); Eosinophils % (A) 0 %; HCT 40.3 % (39.0-53.0); HGB 13.1 gm/dL (13.0-17.5); Lymphocytes # (A) 0.5 k/uL (1.0-4.8); Lymphocytes % (A) 3 %; MCH 28.9 pg (25.0-35.0); MCHC 32.6 g/dL (31.0-37.0); MCV 88.7 fL (80.0-100.0); Mean Platelet Volume 7.3; Monocytes # (A) 0.6 k/uL (0-1.0); Monocytes % (A) 3 %; Neutrophils # (A) 15.2 k/uL (1.3-7.7); Neutrophils % (A) 93 %; Platelet Count 225 k/uL (150-450); RBC 4.54 m/uL (4.30-5.90); RDW 14.4 % (11.5-15.5); WBC 16.3 k/uL (3.8-10.6)
[2018-12-22 12:14] LABS: Albumin 3.4 g/dL (3.5-5.0); Calcium 9.2 mg/dL (8.4-10.2); Potassium 3.8 mmol/L (3.5-5.1); Total Bilirubin 0.3 mg/dL (0.2-1.3); Total Protein 6.1 g/dL (6.3-8.2)
[2018-12-22] MEDS: LEVOFLOXACIN 750 MG TAB PO SCH (17:07)
[2018-12-22 17:28] LABS: Glucose,Whole Blood 153 mg/dL (75-99)
--- NOTE | 2018-12-22 18:40 | P.PN ---
Subjective Progress Note Date: 12/22/18 This is a 69-year-old male one of Dr. Barboza with a previous medical history significant for hypertension and hypertensive cardio vascular disease with left ventricular hypertrophy, history of advanced dementia, as well as Parkinson disease, history of overactive bladder, prostate cancer status post radical prostatectomy, history of chronic and recurrent aspiration of the last 6 months with deterioration of his mental status and physical status, he was brought into the office due to increased shortness with increased confusion, and he was referred to the ER at [facility] for evaluation of aspiration pneumonia, he had a chest x-ray that showed left lower lobe infiltrate suggestive of aspiration pneumonia, pro-calcitonin level is low indicating Radha pneumonia or acid reflux pneumonia. Patient was started on IV antibiotic as well as IV Solu-Medrol he was placed on nebulized treatment as well he would be seen in consultation by pulmonary medicine for further evaluation. Patient's did not want him to go for any invasive procedure or any diagnostic testing including swallow evaluation at this time, we will continue to monitor the patient very closely and hopefully transfer the patient to monitor for palliative care. 12/21: patient has been afebrile, heart rate in the 80s, blood pressure 125/71 and pulse ox 95% on 2 L. pro-calcitonin 0.07. Patient states that his breathing is better from yesterday. He states he slept well. He did have some anxiety and confusion during the night and Xanax was given. Patient has been seen by Dr. Simmons and he recommended speech eval, modified barium and possible PEG tube but patient has been very clear in the past that he does not wish to pursue this. Those orders will be discontinued for now. Speech therapy will continue to recommend safe diet. Discharge plan is go to [facility] and we will ask for palliative evaluation as well 12/22, short-term memory loss is observed, patient cannot provide meaningful conversation, he has tremors, instability of gait, aspiration pneumonia has been recurrent including this admission, they have refused any speech and swallowingevaluation including modified barium eval, and per her preference from the , who has POA, no intervention will be done for this, and is entertainin g palliative treatments with physical therapy on transfer at [facility]. Patient has urinary retention, patient had a postvoid residual of 380, for theFoley catheter was placed, we'll going to initiate Urecholine,discontinue Serrato catheter in the morning, history of prostatectomy for prostate cancer, patient requires of walker, fall risk, one fall within the past 1 month, secondary to shuffling gait, patient is not on any Parkinson's medication here, and hasn't seen any neurologist over the past 8 years, Dr. Olivarez in the past we'll going to start Sinemet 25/100, 3 times a day and titrate thereafter Objective - Vital Signs Vital signs: Vital Signs Temp 98.4 F 12/22/18 13:19 Pulse 100 12/22/18 16:47 Resp 20 12/22/18 13:19 BP 143/81 12/22/18 13:19 Pulse Ox 95 12/22/18 13:19 Intake & Output 12/21/18 12/22/18 12/22/18 18:59 06:59 18:59 Intake Total 350 Output Total 1150 600 Balance -800 -600 Intake: Oral 350 Output: Urine 1150 600 Uretheral (Serrato) 600 Other: Voiding Method Toilet Toilet # Voids 2 - Constitutional General appearance: Present: cooperative, no acute distress - EENT Eyes: Present: anicteric sclerae, EOMI, dentition normal ENT: Present: hard of hearing, NA/AT - Neck Neck: Present: normal ROM - Respiratory Respiratory: bilateral: CTA, diminished - Cardiovascular Rhythm: regular Heart sounds: normal: S1, S2 - Gastrointestinal General gastrointestinal: Present: normal bowel sounds, soft - Integumentary Integumentary: Present: decreased turgor, normal - Neurologic Neurologic: Present: CNII-XII intact - Musculoskeletal Musculoskeletal: Present: generalized weakness - Labs CBC & Chem 7: 12/22/18 11:06 12/22/18 11:06 Labs: Abnormal Lab Results - Last 24 Hours (Table) 12/21/18 12/22/18 12/22/18 Range/Units 22:55 11:06 11:06 WBC 16.3 H (3.8-10.6) k/uL Neutrophils # 15.2 H (1.3-7.7) k/uL Lymphocytes # 0.5 L (1.0-4.8) k/uL Chloride 108 H (98-107) mmol/L BUN 31 H (9-20) mg/dL Glucose 198 H (74-99) mg/dL POC Glucose (mg/dL) (75-99) mg/dL Total Protein 6.1 L (6.3-8.2) g/dL Albumin 3.4 L (3.5-5.0) g/dL Urine Protein Trace H (Negative) Urine Ketones 1+ H (Negative) 12/22/18 Range/Units 17:09 WBC (3.8-10.6) k/uL Neutrophils # (1.3-7.7) k/uL Lymphocytes # (1.0-4.8) k/uL Chloride (98-107) mmol/L BUN (9-20) mg/dL Glucose (74-99) mg/dL POC Glucose (mg/dL) 153 H (75-99) mg/dL Total Protein (6.3-8.2) g/dL Albumin (3.5-5.0) g/dL Urine Protein (Negative) Urine Ketones (Negative) Microbiology - Last 24 Hours (Table) 12/20/18 15:52 Blood Culture - Preliminary Blood No Growth after 48 hours Assessment and Plan Plan: Acute aspiration pneumonia with asthma exacerbation. Continue DuoNeb 3 mg nebulization 4 times every day, continue oxygen support, continue patient on Levaquin 750 mg orally every 48 hours, continue Zosyn 3.375 g IV piggyback every 6 hours, pulmonary consultation Dr. Simmons, we will continue patient on Symbicort 160/4.5 g 2 puff inhalation twice every day, continue patient also on Solu- Medrol 60 mg IV push every 6 hours. 2. dysphagia with mechanical impairment of swallowing was likely secondary to Parkinson's, decline barium swallow per family, they have declined PEG tube feedings as wellmost likely patient cannot be tolerable of speech therapies secondary to cognition and advanced dementia 3. Chronic aspiration pneumonia. Continue treatment as paragraph #1 this time Radha pneumonia. 4. Hypertension and hypertensive cardio vascular disease. Continue amlodipine 5 mg orally once every day. 5. Hyperlipidemia. Patient is not taking his statin. 6. neurogenic bladder with urinary retentionmost likely secondary to Parkinson's. discontinued oxybutynin secondary to urinary retention, start Urecholine, 7. Parkinson disease. initiate Sinemet 25/100 3 times a day, titrate in the next 1-2 weekstherapies are expected to continue at [facility] post discharge 8. Advanced dementia. Family requested no medication as the risks outweigh benefits. 9. History of prostate cancer status post radical prostatectomy.Serrato catheter to be discontinued December 23 10. GERD. Continue PPI. 11. DVT prophylaxis. Continue patient on heparin 5000 units subcutaneously jimbo ry 8 hours. 12. GI prophylaxis. Continue PPI. 13. Admit to inpatient. Estimate a length of stay 2 midnights. 14. Patient is DO NOT RESUSCITATE. discharge planning, skilled ECF was likely Monday
[2018-12-22] MEDS: BETHANECHOL 25 MG TAB PO SCH ×2 (19:18)
[2018-12-22] MEDS: ACETAMINOPHEN TAB 325 MG TAB PO PRN (19:18)
[2018-12-22 20:29] LABS: Glucose,Whole Blood 168 mg/dL (75-99)
[2018-12-22] MEDS: INSULIN ASPART (NovoLOG) 100 UNIT/ML VIAL SQ SCH (20:41)
[2018-12-22] MEDS: methylPREDNISolone SOD SUCCI 40 MG/ML 1 ML VIAL IV SCH (23:30)
[2018-12-23] MEDS: SODIUM CHLORIDE 0.9% 1,000 ML IV SCH ×2 (04:14→16:24)
[2018-12-23 07:11] LABS: Glucose,Whole Blood 156 mg/dL (75-99)
[2018-12-23] MEDS: INSULIN ASPART (NovoLOG) 100 UNIT/ML VIAL SQ SCH ×4 (07:20→22:14)
[2018-12-23] MEDS: CHOLECALCIFEROL 1,000 UNIT TAB PO SCH (07:20)
[2018-12-23] MEDS: BETHANECHOL 25 MG TAB PO SCH ×3 (07:21→22:14)
[2018-12-23] MEDS: PIPERACILLIN-TAZOBACTAM 3.375 GM in SODIUM CHLORIDE 0.9% 100 ML IVPB SCH ×2 (07:21→16:23)
[2018-12-23] MEDS: amLODIPine 10 MG TAB PO SCH (07:21)
[2018-12-23] MEDS: methylPREDNISolone SOD SUCCI 40 MG/ML 1 ML VIAL IV SCH ×2 (07:21→16:23)
[2018-12-23] MEDS: SERTRALINE 50 MG TAB PO SCH (07:21)
[2018-12-23] MEDS: PANTOPRAZOLE 40 MG TABLET PO SCH (07:21)
[2018-12-23] MEDS: HEPARIN SODIUM,PORCINE 5,000 UNIT/ML 1 ML VIAL SQ SCH ×3 (07:21→23:29)
[2018-12-23] MEDS: SYMBICORT 160-4.5 MCG INHALER INHALATION SCH ×2 (07:32→19:34)
[2018-12-23] MEDS: IPRATROPIUM-ALBUTEROL 3 ML NEB INHALATION SCH ×4 (07:32→19:34)
[2018-12-23 11:23] LABS: Glucose,Whole Blood 146 mg/dL (75-99)
[2018-12-23] MEDS: ALPRAZolam 0.25 MG TAB PO PRN (14:44)
--- NOTE | 2018-12-23 16:33 | P.PN ---
Subjective Progress Note Date: 12/23/18 This is a 69-year-old male one of Dr. Barboza with a previous medical history significant for hypertension and hypertensive cardio vascular disease with left ventricular hypertrophy, history of advanced dementia, as well as Parkinson disease, history of overactive bladder, prostate cancer status post radical prostatectomy, history of chronic and recurrent aspiration of the last 6 months with deterioration of his mental status and physical status, he was brought into the office due to increased shortness with increased confusion, and he was referred to the ER at [facility] for evaluation of aspiration pneumonia, he had a chest x-ray that showed left lower lobe infiltrate suggestive of aspiration pneumonia, pro-calcitonin level is low indicating Radha pneumonia or acid reflux pneumonia. Patient was started on IV antibiotic as well as IV Solu-Medrol he was placed on nebulized treatment as well he would be seen in consultation by pulmonary medicine for further evaluation. Patient's did not want him to go for any invasive procedure or any diagnostic testing including swallow evaluation at this time, we will continue to monitor the patient very closely and hopefully transfer the patient to monitor for palliative care. 12/21: patient has been afebrile, heart rate in the 80s, blood pressure 125/71 and pulse ox 95% on 2 L. pro-calcitonin 0.07. Patient states that his breathing is better from yesterday. He states he slept well. He did have some anxiety and confusion during the night and Xanax was given. Patient has been seen by Dr. Simmons and he recommended speech eval, modified barium and possible PEG tube but patient has been very clear in the past that he does not wish to pursue this. Those orders will be discontinued for now. Speech therapy will continue to recommend safe diet. Discharge plan is go to [facility] and we will ask for palliative evaluation as well 12/22, short-term memory loss is observed, patient cannot provide meaningful conversation, he has tremors, instability of gait, aspiration pneumonia has been recurrent including this admission, they have refused any speech and swallowingevaluation including modified barium eval, and per her preference from the , who has POA, no intervention will be done for this, and is entertainin g palliative treatments with physical therapy on transfer at [facility]. Patient has urinary retention, patient had a postvoid residual of 380, for theFoley catheter was placed, we'll going to initiate Urecholine,discontinue Serrato catheter in the morning, history of prostatectomy for prostate cancer, patient requires of walker, fall risk, one fall within the past 1 month, secondary to shuffling gait, patient is not on any Parkinson's medication here, and hasn't seen any neurologist over the past 8 years, Dr. Olivarez in the past we'll going to start Sinemet 25/100, 3 times a day and titrate thereafter 12/23 , urinary retention has resolved with Urecholine for neurogenic bladder, Serrato catheter is discontinued, postvoid residual 0, tremors are better with Sinemet, anticipate discharge to [facility] in the morning with Dr. Kohler, no new falls in the hospital, no aspirated events, decrease Solu-Medrol, short course of oral prednisone Objective - Vital Signs Vital signs: Vital Signs Temp 98.5 F 12/23/18 13:52 Pulse 107 H 12/23/18 13:52 Resp 18 12/23/18 13:52 BP 146/76 12/23/18 13:52 Pulse Ox 94 L 12/23/18 13:52 Intake & Output 12/22/18 12/23/18 12/23/18 18:59 06:59 18:59 Intake Total 800 900 Output Total 600 750 Balance -600 50 900 Intake: Oral 800 900 Output: Urine 600 750 Other: Voiding Method Indwelling Catheter Toilet # Voids 2 # Bowel Movements 1 - Constitutional General appearance: Present: average body habitus, cooperative, no acute distress, obese - EENT Eyes: Present: anicteric sclerae, EOMI, PERRLA, dentition normal, normal appearance ENT: Present: NA/AT - Neck Neck: Present: normal ROM - Respiratory Respiratory: bilateral: CTA, negative: diminished, dullness, rales, wheezing - Cardiovascular Rhythm: regular Heart sounds: normal: S1, S2 Abnormal Heart Sounds: Absent: systolic murmur, diastolic murmur, rub, S3 Gallop, S4 Gallop, click, other - Gastrointestinal General gastrointestinal: Present: normal bowel sounds, soft - Integumentary Integumentary: Present: normal - Neurologic Neurologic: Present: CNII-XII intact - Musculoskeletal Musculoskeletal: Present: generalized weakness - Labs CBC & Chem 7: 12/22/18 11:06 12/22/18 11:06 Labs: Abnormal Lab Results - Last 24 Hours (Table) 12/22/18 12/22/18 12/23/18 Range/Units 17:09 20:20 07:04 POC Glucose (mg/dL) 153 H 168 H 156 H (75-99) mg/dL 12/23/18 Range/Units 11:21 POC Glucose (mg/dL) 146 H (75-99) mg/dL Microbiology - Last 24 Hours (Table) 12/20/18 15:52 Blood Culture - Preliminary Blood No Growth after 48 hours Assessment and Plan Plan: Acute aspiration pneumonia with asthma exacerbation. Continue DuoNeb 3 mg nebulization 4 times every day, continue oxygen support, continue patient on Levaquin 750 mg orally every 48 hours, continue Zosyn 3.375 g IV piggyback every 6 hours, pulmonary consultation Dr. Simmons, we will continue patient on Symbicort 160/4.5 g 2 puff inhalation twice every day, continue patient also on Solu- Medrol 60 mg IV push every 6 hours. 2. dysphagia with mechanical impairment of swallowing was likely secondary to Parkinson's, decline barium swallow per family, they have declined PEG tube feedings as wellmost likely patient cannot be tolerable of speech therapies secondary to cognition and advanced dementia 3. Chronic aspiration pneumonia. Continue treatment as paragraph #1 this time Radha pneumonia. 4. Hypertension and hypertensive cardio vascular disease. Continue amlodipine 5 mg orally once every day. 5. Hyperlipidemia. Patient is not taking his statin. 6. neurogenic bladder with urinary retentionmost likely secondary to Parkinson's. discontinued oxybutynin secondary to urinary retention, start Urecholine, postvoid residuals are monitored and is currently 0 7. Parkinson disease. initiate Sinemet 25/100 3 times a day, titrate in the next 1-2 weekstherapies are expected to continue at [facility] post discharge 8. Advanced dementia. Family requested no medication as the risks outweigh benefits. 9. History of prostate cancer status post radical prostatectomy.Serrato catheter to be discontinued December 23 10. GERD. Continue PPI. 11. DVT prophylaxis. Continue patient on heparin 5000 units subcutaneously every 8 hours. 12. GI prophylaxis. Continue PPI. 13. Admit to inpatient. Estimate a length of stay 2 midnights. 14. Patient is DO NOT RESUSCITATE. discharge planning, skilled ECF was likely Monday
[2018-12-23 16:58] LABS: Glucose,Whole Blood 126 mg/dL (75-99)
[2018-12-23 20:43] LABS: Glucose,Whole Blood 215 mg/dL (75-99)
[2018-12-23] MEDS: AMOXIC-POT CLAV 400-57MG/5ML 50 ML BOTTLE PO SCH (22:13)
[2018-12-24] MEDS: ALPRAZolam 0.25 MG TAB PO PRN (01:43)
[2018-12-24] MEDS: IPRATROPIUM-ALBUTEROL 3 ML NEB INHALATION SCH ×3 (06:43→16:53)
[2018-12-24] MEDS: SYMBICORT 160-4.5 MCG INHALER INHALATION SCH (06:43)
[2018-12-24 06:59] LABS: Glucose,Whole Blood 118 mg/dL (75-99)
[2018-12-24] MEDS: INSULIN ASPART (NovoLOG) 100 UNIT/ML VIAL SQ SCH ×3 (07:51→16:41)
[2018-12-24] MEDS: AMOXIC-POT CLAV 400-57MG/5ML 50 ML BOTTLE PO SCH (08:02)
[2018-12-24] MEDS: CHOLECALCIFEROL 1,000 UNIT TAB PO SCH (08:02)
[2018-12-24] MEDS: SERTRALINE 50 MG TAB PO SCH (08:03)
[2018-12-24] MEDS: HEPARIN SODIUM,PORCINE 5,000 UNIT/ML 1 ML VIAL SQ SCH ×2 (08:03→16:40)
[2018-12-24] MEDS: PANTOPRAZOLE 40 MG TABLET PO SCH (08:03)
[2018-12-24] MEDS: amLODIPine 10 MG TAB PO SCH (08:03)
[2018-12-24] MEDS ORDERED: predniSONE 20 MG TAB PO SCH (09:00)
--- NOTE | 2018-12-24 10:31 | P.DS ---
Providers Date of admission: 12/20/18 17:56 Expected date of discharge: 12/24/18 Attending physician: Kendall Salvador Consults: 12/20/18 17:56 Consult Physician Routine Consulting Provider: Romaine Simmons Consult Reason/Comments: Aspiration pneumonia, asthma Do you want consulting provider notified?: Yes Primary care physician: [facility] Course: This is a 69-year-old male one of Dr. Barboza with a previous medical history significant for hypertension and hypertensive cardio vascular disease with left ventricular hypertrophy, history of advanced dementia, as well as Parkinson disease, history of overactive bladder, prostate cancer status post radical prostatectomy, history of chronic and recurrent aspiration of the last 6 months with deterioration of his mental status and physical status, he was brought into the office due to increased shortness with increased confusion, and he was referred to the ER at [facility] for evaluation of aspiration pneumonia, he had a chest x-ray that showed left lower lobe infiltrate suggestive of aspiration pneumonia, pro-calcitonin level is low indicating Radha pneumonia or acid reflux pneumonia. Patient was started on IV antibiotic as well as IV Solu-Medrol he was placed on nebulized treatment as well he would be seen in consultation by pulmonary medicine for further evaluation. Patient's did not want him to go for any invasive procedure or any diagnostic testing including swallow evaluation at this time, we will continue to monitor the patient very closely and hopefully transfer the patient to monitor for palliative care. 12/21: patient has been afebrile, heart rate in the 80s, blood pressure 125/71 and pulse ox 95% on 2 L. pro-calcitonin 0.07. Patient states that his breathing is better from yesterday. He states he slept well. He did have some anxiety and confusion during the night and Xanax was given. Patient has been seen by Dr. Simmons and he recommended speech eval, modified barium and possible PEG tube but patient has been very clear in the past that he does not wish to pursue this. Those orders will be discontinued for now. Speech therapy will continue to recommend safe diet. Discharge plan is go to [facility] and we will ask for palliative evaluation as well 12/22, short-term memory loss is observed, patient cannot provide meaningful conversation, he has tremors, instability of gait, aspiration pneumonia has been recurrent including this admission, they have refused any speech and swallowingevaluation including modified barium eval, and per her preference from the , who has POA, no intervention will be done for this, and is entertaining palliative treatments with physical therapy on transfer at [facility]. Patient has urinary retention, patient had a postvoid residual of 380, for theAlbion catheter was placed, we'll going to initiate Urecholine,discontinue Serrato catheter in the morning, history of prostatectomy for prostate cancer, patient requires of walker, fall risk, one fall within the past 1 month, secondary to shuffling gait, patient is not on any Parkinson's medication here, and hasn't seen any neurologist over the past 8 years, Dr. Olivarez in the past we'll going to start Sinemet 25/100, 3 times a day and titrate thereafter 12/23 , urinary retention has resolved with Urecholine for neurogenic bladder, Serrato catheter is discontinued, postvoid residual 0, tremors are better with Sinemet, anticipate discharge to [facility] in the morning with Dr. Kohler, no new falls in the hospital, no aspirated events, decrease Solu-Medrol, short course of oral prednisone 12/24: Patient has been afebrile, heart rate in the 70s and 80s, blood pressure 133/81, pulse ox 99% on 2 L nasal cannula. Blood culture shows no growth after 72 hours. Serrato catheter was discontinued yesterday and he has been urinating without difficulty. No new complaints. Patient will be discharged to [facility] today in stable condition. Discharge diagnoses: 1. Acute aspiration pneumonia with asthma exacerbation, moderate persistent. 2. Chronic dysphagia secondary to Parkinson's 3. Chronic aspiration pneumonia. 4. Hypertension and hypertensive cardiovascular disease. 5. Hyperlipidemia. 6. Neurogenic bladder with urinary retention most likely secondary to Parkinson's. 7. Parkinson disease. 8. Advanced dementia. 9. History of prostate cancer status post radical prostatectomy. 10. GERD. Discharge plan: [facility] with palliative care under the care of Dr. Barboza Impression and plan of care have been directed as dictated by the signing physician. Brenda Hill nurse practitioner acting as scribe for signing physician. Patient Condition at Discharge: Good Plan - Discharge Summary Discharge Rx Participant: No New Discharge Prescriptions: New Ipratropium-Albuterol Nebulize [Duoneb 0.5 mg-3 mg/3 ml Soln] 3 ml INHALATION RT-QID ampul.neb Pantoprazole [Protonix] 40 mg PO AC-BRKFST tablet. Acetaminophen Tab [Tylenol] 650 mg PO Q6HR PRN tab PRN Reason: Fever And/ Or Pain Bethanechol [Urecholine] 25 mg PO TID tab ALPRAZolam [Xanax] 0.25 mg PO DAILY PRN #3 tab PRN Reason: Anxiety Amoxic-Pot Clav 400-57Mg/5Ml [Augmentin 400-57 mg/5 ml Susp] 10 ml PO Q12HR #14 dose predniSONE 0 mg PO DIRECTED #20 tab Continue amLODIPine BESYLATE [Amlodipine Besylate] 10 mg PO DAILY Budesonide-Formot 160-4.5 Mcg [Symbicort 160-4.5 Mcg Inhaler] 2 puff INHALATION RT-BID Sertraline HCl [Zoloft] 50 mg PO DAILY Cholecalciferol [Vitamin D3] 5,000 unit PO DAILY Discontinued Albuterol Sulfate [Proair Hfa] 2 puff INHALATION RT-Q4H PRN PRN Reason: Shortness Of Breath Albuterol Nebulized [Ventolin Nebulized] 2.5 mg INHALATION RT-QID PRN PRN Reason: Shortness Of Breath Tolterodine Tartrate [Detrol LA] 2 mg PO DAILY Discharge Medication List Budesonide-Formot 160-4.5 Mcg [Symbicort 160-4.5 Mcg Inhaler] 2 puff INHALATION RT-BID 06/28/16 [History] amLODIPine BESYLATE [Amlodipine Besylate] 10 mg PO DAILY 06/28/16 [History] Cholecalciferol [Vitamin D3] 5,000 unit PO DAILY 05/11/18 [History] Sertraline HCl [Zoloft] 50 mg PO DAILY 05/11/18 [History] ALPRAZolam [Xanax] 0.25 mg PO DAILY PRN #3 tab 12/24/18 [Rx] Acetaminophen Tab [Tylenol] 650 mg PO Q6HR PRN tab 12/24/18 [Rx] Amoxic-Pot Clav 400-57Mg/5Ml [Augmentin 400-57 mg/5 ml Susp] 10 ml PO Q12HR #14 dose 12/24/18 [Rx] Bethanechol [Urecholine] 25 mg PO TID tab 12/24/18 [Rx] Ipratropium-Albuterol Nebulize [Duoneb 0.5 mg-3 mg/3 ml Soln] 3 ml INHALATION RT-QID ampul.neb 12/24/18 [Rx] Pantoprazole [Protonix] 40 mg PO AC-BRKFST tablet. 12/24/18 [Rx] predniSONE 0 mg PO DIRECTED #20 tab 12/24/18 [Rx] Follow up Appointment(s)/Referral(s): Dilshad Barboza MD [Primary Care Provider] - 1 Week (at [facility]) Discharge Disposition: TRANSFER TO SNF/F
[2018-12-24 11:29] LABS: Glucose,Whole Blood 124 mg/dL (75-99)
[2018-12-24] MEDS: BETHANECHOL 25 MG TAB PO SCH ×2 (12:26→16:44)
[2018-12-24 14:11] VITALS: BP 129/77; RESP 16; TEMP 98.3
[2018-12-24 17:03] VITALS: PULSE 102
== END 2018-12-24 17:50 | DRG 178 ==
LOC: EC 15:08 → 4MS4W 17:56
PROVIDERS: ADMIT Internal Medicine; ATTEND Internal Medicine
DX: J69.0 Pneumonitis due to inhalation of food and vomit (principal); J44.0 Chronic obstructive pulmonary disease with (acute) lower respiratory infection; J45.41 Moderate persistent asthma with (acute) exacerbation; J44.1 Chronic obstructive pulmonary disease with (acute) exacerbation; G20 Parkinson's disease; N31.9 Neuromuscular dysfunction of bladder, unspecified; R13.10 Dysphagia, unspecified; F02.80 Dementia in other diseases classified elsewhere, unspecified severity, without behavioral disturbance, psychotic disturbance, mood disturbance, and anxiety; G30.9 Alzheimer's disease, unspecified; I11.9 Hypertensive heart disease without heart failure; E78.5 Hyperlipidemia, unspecified; F41.9 Anxiety disorder, unspecified; G47.30 Sleep apnea, unspecified; K21.9 Gastro-esophageal reflux disease without esophagitis; N32.81 Overactive bladder; R33.8 Other retention of urine; Z66 Do not resuscitate; Z79.51 Long term (current) use of inhaled steroids; Z79.899 Other long term (current) drug therapy; Z88.5 Allergy status to narcotic agent; Z85.46 Personal history of malignant neoplasm of prostate; Z90.79 Acquired absence of other genital organ(s); Z82.49 Family history of ischemic heart disease and other diseases of the circulatory system; Z82.5 Family history of asthma and other chronic lower respiratory diseases; Z84.1 Family history of disorders of kidney and ureter; Z80.9 Family history of malignant neoplasm, unspecified
CPT/HCPCS: 36415; 71046; 80053; 81003; 82140; 82550; 83735; 83880; 84145; 84484; 85025; 85610; 85730; 87040; 94640; 94760; 96365; 96375; 99285